=== PATIENT | male | born 1965 | race Caucasian/White ===

== ENCOUNTER → 2017-07-09 12:25 | Outpatient (CLI) | payer OTHER, SELFPAY ==
--- NOTE | 2017-07-08 | IMM_PTH ---
PATIENT: LANA FARAH LOC: [facility] U#:[id number] AGE/SX: 59/M ROOM: RE07/09/[address]: Dr. Sandeep Hernandez MD : 1965 BED: DIS: SPEC #: [id number] RECD: 07/12/17 15:06 STATUS: DERRICK CHARLES #: [id number] ORI: 07/08/17 00:[address]: Sandeep Hernandez DEPT: IMMUNOHISTOCHEMISTRY RECD BY: Svaannah Camarillo ENTERED: 07/12/17 15:07 SP TYPE: IMMUNO OTHR DR: Dr. Teddy Palmer III, MD Tissues: Finger, NOS Procedures: CD31 (initial) SMA (add) P53 (add) Vimentin (add) SMM (add) FACTOR VIII (add) PHYSICIAN & INSTITUTION [place] [id number] SPECIMEN INFORMATION: Tissue Source: Left ring finger soft tissue mass Clinical Info: Vascular malformation Specimen Number: [id number] CPT code: 08715, 05559 x5 METHODOLOGY: Deparaffinized sections of prefer/formalin-fixed tissue or PAP/DQ stained slides are incubated with monoclonal/polyclonal antibodies/oligonucleotide probes. Localization is made via biotin free immunoperoxidase method. Appropriate controls are performed and reacted as expected. Results on target cell population are indicated in the following table: RESULTS: ANTIBODY / CLONE RESULT CD31 (DIO/70A) positive Factor VIII (R Ag) positive Vimentin (V9) positive Actin (1A4) positive Myosin (simms1) positive P53 (DO-7) negative These tests were developed and their performance characteristics determined by [facility]. They may not have been cleared or approved by the U.S. Food and Drug Administration. The FDA has determined that such clearance or approval is not necessary. INTERPRETATION: Left ring finger soft tissue mass, excision: Consistent with capillary hemangioma. AM:fidelia 07/13/17
--- NOTE | 2017-07-08 12:50 | GANG_PTH ---
PATIENT: LANA FARAH LOC: [facility] U#:[id number] AGE/SX: 59/M ROOM: RE07/09/[address]: Dr. Sandeep Hernandez MD : 1965 BED: DIS: SPEC #: [id number] RECD: 07/09/17 12:02 STATUS: DERRICK CHARLES #: [id number] ORI: 07/08/17 12:[address]: Sandeep Hernandez DEPT: SURGICAL PATHOLOGY RECD BY: Savannah Camarillo ENTERED: 07/09/17 15:55 SP TYPE: GANGLION OTHR DR: Dr. Teddy Palmer III, MD Tissues: GANGLION CYST Procedures: Surgery Specimen Level IV HEADER OPERATION: Excision ganglion left ring finger PRE-OP DIAGNOSIS: M67.49, M71.39, M67.89, vascular malformation TISSUE SUBMITTED: Left ring finger soft tissue mass MICROSCOPIC DIAGNOSIS Soft tissue mass, left ring finger, biopsy: Consistent with capillary hemangioma. AM:fidelia 07/12/17 COMMENT Immunohistochemistry ([id number]) supports the above diagnosis. MICROSCOPIC DESCRIPTION Slides are reviewed. GROSS DESCRIPTION Received in fixative is one container labeled with the patient's name and designated ring finger soft tissue mass. The specimen consists of multiple irregular fragments of light to dark richard soft tissue that in aggregate measure 1 x 0.5 x 0.2 cm. The specimen is totally submitted in one cassette. / AM:fidelia 07/09/17 TC:5 CPT: 62860
== END ==
LOC: LAB 12:30 → LABSPEC 12:33
PROVIDERS: Family Provider Family Medicine; PCP Family Medicine; Visit Provider Orthopaedic Surgery
DX: M67.49 Ganglion, multiple sites (principal); M71.39 Other bursal cyst, multiple sites; M67.89 Other specified disorders of synovium and tendon, multiple sites; M79.9 Soft tissue disorder, unspecified
CPT/HCPCS: 88304; 88305; 88341; 88342

== ENCOUNTER → 2018-11-11 08:34 | Outpatient (CLI) | payer OTHER, SELFPAY ==
[2017-11-25 08:09] VITALS: BMI 28.3
--- NOTE | 2018-11-11 08:39 | EKG12_ITS ---
Test Reason : PREOP Blood Pressure : / mmHG Vent. Rate : 080 BPM Atrial Rate : 080 BPM P-R Int : 202 ms QRS Dur : 090 ms QT Int : 366 ms P-R-T Axes : 042 003 015 degrees QTc Int : 422 ms Normal sinus rhythm Normal ECG No previous ECGs available Confirmed by TEVIN ANTONIO ([id number]), news videotape editor GINI TORRES ([id number]) on 11/14/2018 8:50:37 AM Referred By: Jamal Kirby Confirmed By:LISSY ANTONIO
[2018-11-11 10:04] LABS: Anion Gap 5 (5-15); BUN 15 mg/dL (7-18); BUN/Creat Ratio 15.9 RATIO (10-20); Calcium,Total 9.1 mg/dL (8.5-10.1); Chloride 108 mmol/L (98-107); Creatinine, Serum 0.94 mg/dL (0.70-1.30); EST Glomerular Filtration Rate 89 mL/min (>60); Est Glom Filt Rate - Afr Amer 108 mL/min (>60); Glucose 74 mg/dL (74-106); Potassium 3.8 mmol/L (3.5-5.1); Sodium Level 143 mmol/L (136-145)
== END ==
PROVIDERS: Family Provider Family Medicine; PCP Family Medicine; Referring Provider Otolaryngology; Visit Provider Otolaryngology
DX: Z01.818 Encounter for other preprocedural examination (principal)
CPT/HCPCS: 36415; 80048; 93005

== ENCOUNTER → 2019-02-13 15:00 | Outpatient (CLI) | payer OTHER, SELFPAY ==
[2017-11-25 08:09] VITALS: BMI 28.3
--- NOTE | 2019-02-13 | COLBX_PTH ---
PATIENT: LANA FARAH LOC: [facility] U#:[id number] AGE/SX: 59/M ROOM: RE02/13/[address]: Dr. James Russ MD : 1965 BED: DIS: SPEC #: [id number] RECD: 02/13/19 13:00 STATUS: DERRICK DAMONTimothy #: [id number] ORI: 02/13/19 00:[address]: James Russ DEPT: SURGICAL PATHOLOGY RECD BY: Abdelrahman Rock ENTERED: 02/15/19 09:41 SP TYPE: COLON BX OT DR: Dr. Teddy Palmer III, MD Tissues: Transverse colon Procedures: Surgery Specimen Level IV HEADER OPERATION: Colonoscopy PRE-OP DIAGNOSIS: Z86.90 TISSUE SUBMITTED: Transverse colon MICROSCOPIC DIAGNOSIS Transverse colon, biopsy: Tubular adenoma. AM:fidelia 02/15/19 MICROSCOPIC DESCRIPTION Slides are reviewed. GROSS DESCRIPTION Received in fixative is one container labeled with the patient's name and designated transverse colon polyp. The specimen consists of two irregular fragments of light richard soft tissue that in aggregate measure 0.5 x 0.2 x 0.1 cm. The specimen is totally submitted in one cassette. / AM:fidelia 02/14/19 TC:5 CPT: 12130
== END ==
PROVIDERS: Family Provider Family Medicine; PCP Family Medicine; Referring Provider Internal Medicine Gastroenterology; Visit Provider Internal Medicine Gastroenterology
DX: Z86.010 Personal history of colon polyps (principal)
CPT/HCPCS: 88305

== ENCOUNTER 2019-11-30 09:16 | Emergency (ER) | payer OTHER, SELFPAY ==
[2019-11-30 09:18] VITALS: BP 150/97; PULSE 74; RESP 18; TEMP 36.4; O2SAT 99; BMI 27.9
--- NOTE | 2019-11-30 09:34 | EKG12_ITS ---
Test Reason : CP Blood Pressure : / mmHG Vent. Rate : 072 BPM Atrial Rate : 072 BPM P-R Int : 188 ms QRS Dur : 110 ms QT Int : 384 ms P-R-T Axes : 049 030 015 degrees QTc Int : 420 ms Normal sinus rhythm Normal ECG Confirmed by CHERIE GUERRERO ([id number]), supervising editor trailer GINI TORRES ([id number]) on 12/05/2019 2:19:08 PM Referred By: ROSIO Confirmed By:CHERIE GUERRERO
[2019-11-30 09:37] VITALS: O2SAT 99
--- NOTE | 2019-11-30 09:38 | RAD_ITS ---
STUDY: X-RAY CHEST REASON FOR EXAM: Male, 54 years old. CHEST PAIN TECHNIQUE: PA and lateral views of the chest. COMPARISON: None. FINDINGS: EKG electrodes are seen. Scattered calcified granulomas. The lungs are clear. There is no demonstrated pleural abnormality. Normal size heart. Normal mediastinum and ck. Normal visualized pulmonary arteries. Normal visualized aortic arch and descending thoracic aorta. Normal visualized thoracic spine. Normal visualized ribs, clavicles, and shoulders. There is no demonstrated abnormality of the visualized soft tissue structures of the upper abdomen. RAD/Chest PA and Lateral IMPRESSION: No acute abnormality is seen. Electronically Signed: Tirso Allen, at 10:00 EDT , Service support ,
--- NOTE | 2019-11-30 09:40 | ED.VIS.GEN ---
History of Present Illness Chief Complaint: Chest Pain Informant: Patient Narrative: Patient is a 54-year-old male with a past medical history of hypertension who presents to the emergency department for left-sided chest discomfort that has been present over the past 7 days. He denies ever having this happen before in the past. He states that it only gets up to 1 out of 10 which is what it is at currently. He did start an exercise training program on whenever this all started. He also did some heavy lifting moving logs. He denies any aggravating or relieving factors currently. Taking deep breaths does not aggravate it. He has not had any pain or swelling in his legs. He denies any family history of heart attacks although there has been feeling members with strokes. He denies any smoking history. Pain does not radiate to his back, neck, abdomen or extremities. No associated diaphoresis or nausea. States that whenever he does the high intensity training this does not really aggravate his symptoms. Discomfort is kind of just nagging and constant. No associated shortness of breath. He has not tried taking anything for this. Past Medical History - Allergies and Home Meds Allergies/Adverse Reactions: Allergies No Known Allergies Allergy (Unverified 11/30/19 09:20) Primary Care Physician: Teddy Palmer III, MD [Primary Care Provider] - Prior records reviewed: Yes Past Medical History: - - Hypertension Surgical History: no surgical history Smoking Status: Never smoker Alcohol: None Drugs: None Review of Systems All systems negative except as indicated General: Denies: Chills, Fever, Sweats Eyes: Denies: Visual changes - bilaterally, Diplopia ENT: Denies: Rhinorrhea, Sore throat Cardiovascular: Reports: Chest pain - Discomfort. Denies: Palpitations Respiratory: Denies: Dyspnea, Cough, Dyspnea on exertion Gastrointestinal: Denies: Abdominal pain, Nausea, Vomiting, Diarrhea, Melena, Hematochezia Genitourinary: Denies: Dysuria, Hematuria, Frequency Musculoskeletal: Denies: Back pain, Extremity Pain Skin: Denies: Rash, Wounds Neurological: Denies: Headache, Weakness, Numbness Physical Exam Vital Signs/Narrative: Vital Signs Temp Pulse Resp BP Pulse Ox 11/30/19 09:37 99 11/30/19 09:18 97.6 F L 74 18 150/97 H 99 General: Well nourished, Well developed, No Acute Distress Head: Normocephalic, Atraumatic Eyes: Perrl, EOMI ENT: Moist mucous membranes, No rhinorrhea Neck: Supple, Nontender Cardiovascular: Regular rate, Regular rhythm, No murmurs Respiratory: No distress, CTA bilaterally. Negative for: Chest nontender - He has mild tenderness when palpating the left anterior chest wall Abdomen: Soft, Nontender, Nondistended, Normal bowel sounds Back: Nontender, Normal Inspection Extremities: Nontender, No edema. Negative for: Calf Tenderness Skin: Normal color, No rash Neurological: Alert, Oriented x3, Cranial nerves II-XII grossly intact, Normal Strength, Normal Sensation Psychological: Normal affect, Normal Mood Diagnostic/Tx/Re-eval Chest x-ray did not show any evidence of consolidation. No pleural effusions. No pneumothorax. No rib fractures. No widened mediastinum. - EKG Initial EKG Interpretation: Sinus Rhythm - Rate of 72 bpm in sinus rhythm. Normal intervals. Normal axis. No ST elevations or depressions appreciated. No T wave abnormalities. No prior EKG for comparison. - Medical Decision Making Patient presents emerge department for 1 out of 10 left-sided chest discomfort. Rated when exercising. Not pleuritic. He has been doing a lot of heavy lifting and increased cardio activity. His chest wall is tender to palpation and this could be read into his symptoms including costochondritis. Do cardiac evaluation including EKG, chest x-ray and basic lab work. Otherwise physical exam is benign and he is nontoxic-appearing. Patient's lab work-up did not reveal any significant acute abnormalities. Troponin is well within normal limits. He has not had any increase in the symptoms throughout ED stay. He does have a heart score of 2 and does feel comfortable going home at this time. He does need to follow-up with his PCP for possible outpatient stress test. He develops any worsening symptoms he is to return to the emergency department immediately. He understands and is agreeable with this plan. ED Disposition - Plan for ED Patient: Disposition: Home or Assisted Living Diagnosis: Chest wall pain Instructions: ED CHEST PAIN [place] Referrals: Teddy Palmer III, MD [Primary Care Provider] - 2 Days
[2019-11-30 09:44] LABS: Absolute Lymphocyte Count 1.56 X10^3/uL (0.83-4.51); Absolute Neutrophil Count 3.4 X10^3/uL (2.0-7.7); Basophil# 0.05 X10^3/uL; Basophil% 0.9 % (0-1); Eosinophil# 0.04 X10^3/uL; Eosinophils% 0.7 % (0-5); Hematocrit 41.7 % (40-54); Hemoglobin 14.2 g/dL (13.0-16.5); Lymphocyte # 1.56 X10^3/ul (4.0); Lymphocyte % 28.7 % (19-41); Mean Corp Hgb Conc 34.1 g/dL (32-36); Mean Corpuscular Hgb 30.7 pg (27.0-32.0); Mean Corpuscular Volume 90.3 fL (80-94); Mean Platelet Vol. 8.6 fl (6.2-12.0); Monocyte# 0.35 X10^3/uL; Monocyte% 6.4 % (0-10); NRBC Flagged by Analyzer 0 % (0-5); Neutrophil # 3.41 X10^3/uL (2.7-7.7); Neutrophil % 62.9 % (47-70); Platelet Count 198 K/mm3 (150-450); RBC Distribution Width CV 11.9 % (11.6-14.6); RBC Distribution Width SD 38.3 fl (35.1-43.9); Red Blood Count 4.62 M/mm3 (4.6-6.2); White Blood Count 5.4 K/mm3 (4.4-11.0)
[2019-11-30 10:29] LABS: Anion Gap 6 (5-15); BUN 16 mg/dL (7-18); BUN/Creat Ratio 15.8 RATIO (10-20); Calcium,Total 9.1 mg/dL (8.5-10.1); Chloride 103 mmol/L (98-107); Creatinine, Serum 1.01 mg/dL (0.70-1.30); EST Glomerular Filtration Rate 82 mL/min (>60); Est Glom Filt Rate - Afr Amer 99 mL/min (>60); Estimated Creatinine Clearance 83.61 ml/min; Glucose 91 mg/dL (74-106); Magnesium 2.4 mg/dL (1.6-2.6); Potassium 3.8 mmol/L (3.5-5.1); Sodium Level 140 mmol/L (136-145)
[2019-11-30 11:09] VITALS: RESP 16
== END 2019-11-30 11:10 | disposition home or self-care (01) ==
PROVIDERS: Emergency Provider Emergency Medicine; PCP Family Medicine
DX: R07.89 Other chest pain (principal); I10 Essential (primary) hypertension; Z79.899 Other long term (current) drug therapy
CPT/HCPCS: 71046; 80048; 83735; 84484; 85025; 93005; 99284; A4216

== ENCOUNTER → 2019-12-14 13:07 | Outpatient (CLI) | payer OTHER, SELFPAY ==
[2019-11-30 09:18] VITALS: BMI 27.9
--- NOTE | 2019-12-14 13:14 | STEWCON_ITS ---
Reason For Study: chest pain Stress Results Protocol: Jonas Protocol WITH DEFINITY Maximum Predicted HR: 166 bpm Target HR: 141 bpm % Maximum Predicted HR: 104 % DurationHeart Rate Stage (mm:ss) (bpm) BP Comment baseline 67 130/78 stage 1 3:00 109 152/78no chest pain stage 2 3:00 131 158/78no chest pain stage 3 3:00 151 178/80no chest pain, mild shortness of breath stage 4 3:00 164 182/84no chest pain, mild shortness of breath stage 5 0:46 173 / no chest pain, mild shortness of breath recovery 95 144/70no chest pain. total 4 ml definity given per protocol. Stress Duration: 12:46 mm:ss Maximum Stress HR: 173 bpm Baseline Echocardiogram Findings The estimated ejection fraction is 60 %. EF at peak exercise is 75%. Stress Echo Wall motion Data Resting WM Intermediate WM Stress WM Resting Wall Motion Wall Motion Stress No regional wall motion No regional wall motion abnormalities noted. abnormalities noted. EKG Data No ischemic changes. The stress ECG displays normal sinus rhythm. Symptoms with Stress The patient experinced no chest pain . Interpretation Summary The estimated ejection fraction is 60 %. Test is -ve for exercise induced CP or EKG or Echocardiographic changes of ischemia. Ordering Physician: Teddy Palmer Referring Physician: Teddy Palmer Performed By: Pao Hameed, LUIS ALFREDO, RVT
== END ==
PROVIDERS: PCP Family Medicine; Referring Provider Family Medicine; Visit Provider Family Medicine
DX: R07.9 Chest pain, unspecified (principal)
CPT/HCPCS: 93017; 93350; Q9957; A4216; C8928

== ENCOUNTER → 2023-11-24 | Outpatient (CLI) | payer OTHER, SELFPAY ==
--- NOTE | 2023-11-24 | IMM_PTH ---
PATIENT: LANA FARAH LOC: [facility] U#:[id number] AGE/SX: 58/M ROOM: RE11/24/[address]: Dr. Star Nieto MD : 1965 BED: DIS: 11/24/2023 SPEC #: [id number] RECD: 11/25/23 09:15 STATUS: DERRICK CHARLES #: [id number] ORI: 11/24/23 00:[address]: Star Nieto DEPT: IMMUNOHISTOCHEMISTRY RECD BY: Murali Tyson Tissues: B - Gastric mucous membrane Procedures: H Pylori (initial) PHYSICIAN & INSTITUTION [place] [id number] SPECIMEN INFORMATION: Tissue Source: B- Antral biopsy Clinical Info: Tubular adenoma of colon, blood in stool Specimen Number: [id number] CPT code: 34108 METHODOLOGY: Deparaffinized sections of prefer/formalin-fixed tissue or PAP/DQ stained slides are incubated with monoclonal/polyclonal antibodies/oligonucleotide probes. Localization is made via biotin free immunoperoxidase method. Appropriate controls are performed and reacted as expected. Results on target cell population are indicated in the following table: RESULTS: ANTIBODY / CLONE RESULT Block B H Pylori (polyclonal) negative These tests were developed and their performance characteristics determined by [facility]. They may not have been cleared or approved by the U.S. Food and Drug Administration. The FDA has determined that such clearance or approval is not necessary. The above immunohistochemical/dualISH markers are ordered and reviewed by the Pathologist. INTERPRETATION: B. Antrum, biopsy: Negative for Helicobacter pylori organisms. ADRI/ 11/26/2023
--- NOTE | 2023-11-24 08:00 | EGD_PTH ---
PATIENT: LANA FARAH [id number] AGE/SX: 58/M ROOM: RE11/24/[address]: Dr. Star Nieto MD : 1965 BED: DIS: 11/24/2023 SPEC #: [id number] RECD: 11/24/23 15:18 STATUS: DERRICK CHARLES #: [id number] ORI: 11/24/23 08:[address]: Star Nieto DEPT: SURGICAL PATHOLOGY RECD BY: Dawn Smith Tissues: A - Duodenum, NOS B - Gastric mucous membrane C - Esophagus, NOS D - Esophagus, NOS Procedures: Special Stain Group I Surgery Specimen Level IV Alcian Blue/PAS (control) HEADER OPERATION: EGD/ colonoscopy PRE-OP DIAGNOSIS: Tubular adenoma of colon, blood in stool TISSUE SUBMITTED: A- Duodenum, B- Antrum, C- Distal esophagus, D- Mid esophagus MICROSCOPIC DIAGNOSIS A. Duodenum, biopsy: A fragment of small intestinal mucosa, no pathologic diagnosis. B. Antrum, biopsy: Mild gastritis. See microscopic description and comment. C. Distal esophagus, biopsy: Fragments of gastroesophageal mucosa with chronic inflammation. Intestinal metaplasia (goblet cell metaplasia) not identified. See comment. D. Mid esophagus, biopsy: Fragments of benign squamous mucosa. / 11/26/2023 COMMENT B. The results of immunohistochemistry for Helicobacter pylori will be reported separately ([id number]). C. Alcian blue/PAS stain with matched control is used in the evaluation of the specimen. The specimen predominantly consists of squamous mucosa. MICROSCOPIC DESCRIPTION Slides are reviewed. B. The specimen shows fragments of gastric mucosa with chronic inflammatory cell infiltrates in the lamina propria consisting of lymphocytes and plasma cells, consistent with mild chronic gastritis. GROSS DESCRIPTION A. Received in fixative is one container labeled with the patient's name and designated Duodenum biopsy. The specimen consists of one irregular fragment of light richard soft tissue that measures 0.4 x 0.4 x 0.1 cm. The specimen is totally submitted in one cassette. B. Received in fixative is one container labeled with the patient's name and designated Antrum biopsy. The specimen consists of one irregular fragment of light richard soft tissue that measures 0.3 x 0.3 x 0.1 cm. The specimen is totally submitted in one cassette. C. Received in fixative is one container labeled with the patient's name and designated Distal esophagus biopsy. The specimen consists of multiple irregular fragments of light richard soft tissue that in aggregate measure 0.8 x 0.5 x 0.1 cm. The specimen is totally submitted in one cassette. D. Received in fixative is one container labeled with the patient's name and designated Mid esophageal biopsy. The specimen consists of two irregular fragments of light richard soft tissue that in aggregate measure 0.6 x 0.3 x 0.1 cm. The specimen is totally submitted in one cassette. Suellen 11/25/2023 TC:3 CPT:31891e5,54568
== END | disposition home or self-care (01) ==
PROVIDERS: Referring Provider Surgery; Visit Provider Surgery
DX: K29.70 Gastritis, unspecified, without bleeding (principal); K20.90 Esophagitis, unspecified without bleeding; K92.1 Melena; D12.6 Benign neoplasm of colon, unspecified
CPT/HCPCS: 88305; 88312; 88342